=== PATIENT | female | born 1935 | race Caucasian/White ===

== ENCOUNTER 2017-03-01 13:01 | Emergency (ER) | payer MEDICARE, OTHER ==
[~2017-03-01 13:01] MED LIST: CENTRUM TAB1 TAB PO; CLARITD24H PO; LORTAB 5 PO; METAMUCIL TABS PO; OCEAN NAS; PRILO PO; PROBIOTICS PO; PROZAC PO; SYN.15 PO; X5 PO; [UNRECOGNIZED DRUG - OTHER] OP
== END 2017-03-01 13:10 | disposition home or self-care (01) ==
LOC: ER 13:01
DX: N89.9 Noninflammatory disorder of vagina, unspecified (principal); E11.40 Type 2 diabetes mellitus with diabetic neuropathy, unspecified; K21.9 Gastro-esophageal reflux disease without esophagitis; F32.9 Major depressive disorder, single episode, unspecified; F41.9 Anxiety disorder, unspecified; Z88.2 Allergy status to sulfonamides; Z79.899 Other long term (current) drug therapy
CPT/HCPCS: 99283